=== PATIENT | female | born 1980 | race Hispanic/Latino ===

== ENCOUNTER 2022-11-08 23:39 | Emergency (ER) | payer BC ==
[~2022-11-08] VITALS: Ht 170.2 cm; Wt 81.6 kg
[2022-11-09 01:26] LABS: APPEARANCE,URINE CLEAR (CLEAR); BILIRUBIN,URINE NEGATIVE (NEGATIVE); COLOR,URINE LIGHT-YELLOW (YELLOW); GLUCOSE, URINE (UA) NEGATIVE (NEGATIVE); HCG,QUALITATIVE URINE NEGATIVE (NEGATIVE); KETONES,URINE NEGATIVE (NEGATIVE); LEUKOCYTE ESTERASE ,URINE NEGATIVE Leu/uL (NEGATIVE); NITRATE,URINE NEGATIVE (NEGATIVE); OCCULT BLOOD,URINE NEGATIVE (NEGATIVE); PH,URINE 5.5 (5.0-8.0); PROTEIN,URINE NEGATIVE (NEGATIVE); UROBILINOGEN,URINE 0.2 mg/dL (0.2-1.0)
[2022-11-09] MEDS: METOCLOPRAMIDE 10 MG/2 ML VIAL IVP ONE (01:32)
[2022-11-09] MEDS: KETOROLAC 30MG VIAL (30MG/ML) IVP ONE (01:32)
[2022-11-09] MEDS: DiphenhydrAMINE HCL 50 MG/ML VIAL IV ONE (01:32)
[2022-11-09 01:33] LABS: BASOPHILS % (AUTO) 1.4 % (0.0-5.0); HEMATOCRIT 45.4 % (36-48); LYMPHOCYTES % (AUTO) 21.8 % (21.0-51.0); MEAN CORPUSCULAR HEMOGLOBIN 26.6 pg (27.0-33.0); MEAN CORPUSCULAR HGB CONC 32.4 g/dL (32.0-36.0); MEAN CORPUSCULAR VOLUME 82.2 fL (79-99); MONOCYTES % (AUTO) 6.5 % (3.0-13.0); NEUTROPHILS % (AUTO) 66.1 % (40.0-77.0); PLATELET COUNT (AUTO) 610 K/uL (130-400); RED BLOOD CELL COUNT(AUTO) 5.52 MIL/uL (4.00-5.50); RED CELL DISTRIBUTION WIDTH 15.3 % (11.0-15.5); WHITE BLOOD COUNT (AUTO) 12.5 K/uL (4.8-10.8)
[2022-11-09 01:42] LABS: CREATININE 0.8 mg/dL (0.5-1.5); POTASSIUM 3.9 mmol/L (3.5-5.1)
[2022-11-09 01:47] LABS: ALBUMIN 3.6 g/dL (3.5-5.0)
[2022-11-09] MEDS ORDERED: IBUP-1493 PO (02:10)
[2022-11-09 02:14] VITALS: BP 141/78
== END 2022-11-09 02:27 | disposition home or self-care (01) ==
LOC: EDH 23:39 → EDBD 23:39 → EDH 11-09 02:27
DX: G43.909 Migraine, unspecified, not intractable, without status migrainosus (principal); R11.2 Nausea with vomiting, unspecified; R42 Dizziness and giddiness; R53.1 Weakness; Z79.1 Long term (current) use of non-steroidal anti-inflammatories (NSAID)
CPT/HCPCS: 99285; 80053; 85025; 81003; 81025; 36415; 96374; 70450; 76700; 96375; J1200; J1885; J2765